=== PATIENT | female | born 1995 | race Caucasian/White ===

== ENCOUNTER 2025-07-24 15:59 | Emergency (ER) | payer OTHER, SELFPAY ==
--- NOTE | ~2025-07-24 | XR_ITS ---
EXAMINATION: XR elbow LT min 3V DATE: 07/24/2025 16:16 INDICATION: Pain and swelling TECHNIQUE: Left elbow x-rays were obtained. COMPARISON: None. FINDINGS: No fracture subluxation or dislocation. No acute or aggressive bony or soft tissue process identified. Slightly amorphous appearing calcification is present adjacent to the lateral epicondyle on the oblique view. IMPRESSION: 1. Possible old injury adjacent to the lateral epicondyle. 2. Other findings as above. 3. Consider correlation with left elbow MRI for optimal evaluation as clinically appropriate. Reviewed, dictated and finalized at location A. [facility] IMPRESSION: 1. Possible old injury adjacent to the lateral epicondyle. 2. Other findings as above. 3. Consider correlation with left elbow MRI for optimal evaluation as clinicall y appropriate.
[2025-07-24 16:06] VITALS: BP 107/60
--- NOTE | 2025-07-24 16:45 | ED.GENADULT ---
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 No fevers or chills. Related Data Allergies Allergy/AdvReac Type Severity Reaction Status Date / Time No Known Allergies Allergy Verified 07/24/25 16:48 Review of Systems Review of Systems: All systems reviewed & are unremarkable except as noted in HPI and below Exam Narrative: EXAMINATION OF ORGAN SYSTEMS/BODY AREAS: Constitutional: Vital signs per nursing GENERAL:No acute distress, non-toxic appearing. HEAD: Normal with no signs of head trauma. EYES: EOMI, conjunctiva normal ENT: Hearing grossly intact LUNGS: Nonlabored breathing. HEART: Regular rate and rhythm, regular radial pulse ABD: Soft, nontender to palpation EXT: Left elbow: No significant pain with passive range of motion however there is more pain with full extension of the elbow. No significant swelling or effusion SKIN: Very slight redness possibly to lateral epicondyle NEURO: Alert. No gross focal sensory or strength deficits. PSYCH: Normal affect Course Vital Signs Vital signs: Vital Signs Blood Pressure 107/60 07/24/25 16:06 Temperature 99 F 07/24/25 16:51 Pulse Rate 93 07/24/25 16:51 Respiratory Rate 16 07/24/25 16:51 Blood Pressure 107/59 L 07/24/25 16:51 Pulse Oximetry 98 07/24/25 16:51 [facility] Narrative Medical decision making narrative: Patient presenting with 2 weeks now with some soreness to the left elbow, feels similar to when she had arthritis flare to her other wrist. No recent trauma, on exam there is a tiny bit of redness to the lateral epicondyle, otherwise no obvious effusion, essentially painless passive range of motion until extended, given this I suspect more likely arthritis and less likely a septic arthritis, but will get an x-ray, no obvious fracture seen on this. I did discuss with patient strict return precautions for any signs of septic arthritis with follow-up to orthopedist, can trial a course of steroids since they did very well last time, and patient agreeable to plan Differential Diagnosis Differential Diagnosis: Arthritis, fracture, septic arthritis Imaging Data Radiologist's impression: ITS Impressions Elbow X-Ray 07/24/25 16:17 IMPRESSION: 1. Possible old injury adjacent to the lateral epicondyle. 2. Other findings as above. 3. Consider correlation with left elbow MRI for optimal evaluation as clinically appropriate. Discharge Plan Discharge Clinical Impression: Elbow sprain Patient Disposition: Home Condition: Stable Instructions: Elbow Sprain (ED) Additional Instructions: You can try Aleve instead for longer relief instead of ibuprofen; try the steroid course and follow-up with orthopedist. If you start noticing redness, pain with movement of your arm, or swelling or anything else concerning for infection, come back to the ER immediately. Patient Language: Albanian Prescriptions: New prednisone 20 mg tablet 40 mg PO DAILY 4 Days Qty: 8 0RF Follow-up/Referrals: Chaim Islas MD [Physician, Orthopedics] - 2 Days PHYSICIAN,HALL WORKER [Primary Care Provider, Internal Medicine]
[2025-07-24] MEDS: KETOROLAC 30 MG/ML VIAL (*BKC) 15 MG IM (16:49)
[2025-07-24 16:51] VITALS: BP 107/59; PULSE 93; RESP 16; TEMP 37.2; O2SAT 98
--- OUTSIDE RECORDS SUMMARY | 2025-07-24 18:00 | XMS_ITS | Clinical Summary ---
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 Gender Identity Not on file Sexual Orientation Not on file Plan of Treatment Health Maintenance Due Date Last Done Comments Cervical Cancer Screening 1993 Depression Screening 1993 Hepatitis C Screening 1993 Varicella Vaccines (1 of 2 - 13+ 2-dose series) 2006 Hepatitis B Screening 2011 Regular Well Visit/Exam 18-64 2011 HPV Vaccines (1 - 3-dose SCDM series) 2020 Covid-19 Vaccine ( season) 2025 12/11/2020, 11/20/2020 Influenza Vaccine (#1) 2025 , 07/10/2020, 06/23/2017, Additional history exists DTaP/Tdap/Td Vaccine (2 - Td or Tdap) 08/16/2027 08/16/2017 Pneumococcal vaccine <65 Aged Out No longer eligible based on patient's age to complete this topic Insurance [employer] Address: [address] [place] [address] [employer] Address: [address] [place] [address] Care Teams Design Studio Consultant Relationship Specialty Start Date End Date Unknown, Notinfile PCP - General 08/01/21
--- OUTSIDE RECORDS SUMMARY | 2025-07-24 18:00 | XMS_ITS | Clinical Summary ---
Author Organization [facility] Address [address] [place] [address] Care Team Providers Care Big Data Engineer Name Role Phone Unavailable Primary Care Provider Unavailabl e Source Comments [facility],non-owned Affiliates and Associated Physician Practices is amultiple site organization consisting of ambulatory clinics and hospital sitesin [place], [place], [place] and [place]. This disclosure is being madepursuant to the Care Everywhere program and may not contain all information available regarding this patient. 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 Gender Identity Not on file Sexual Orientation Not on file Plan of Treatment Health Maintenance Due Date Last Done Comments HIV SCREENING 2008 HEPATITIS C SCREENING 03/27/2011 DTAP/TDAP/TD VACCINES (1 - Tdap) 2012 HEPATITIS B VACCINE (1 of 3 - 19+ 3-dose series) 2012 HPV VACCINE (1 - 3-dose SCDM series) 2020 DEPRESSION SCREENING 08/09/2024 COVID-19 VACCINE (1 - 2024-2 6 season) 2025 INFLUENZA VACCINE (#1) 2025 ZOSTER VACCINE (1 of 2) 2043 HIB VACCINE Aged Out No longer eligi ble based on patient's age to complete this topic MENINGOCOCCAL (Group B) VACC INE SHARED DECISION-MAKING Aged Out No longer eligibl e based on patient's age to complete this topic MENINGOCOCCAL GROUPS A/C/Y/W VACCINE Aged Out No longer eligible b ased on patient's age to complete this topic PNEUMOCOCCAL VACCINE Aged Out No long er eligible based on patient's age to complete this topic Insurance [facility]
== END 2025-07-24 17:10 | disposition home or self-care (01) ==
LOC: ANHED 16:58
PROVIDERS: Emergency Provider Emergency Medicine
DX: S53.402A Unspecified sprain of left elbow, initial encounter (principal); M19.90 Unspecified osteoarthritis, unspecified site; X58.XXXA Exposure to other specified factors, initial encounter
CPT/HCPCS: 73080; 96372; 99283; J1885; J7512